=== PATIENT | male | born 1985 | race Two or more races ===

== ENCOUNTER 2023-07-21 16:49 | Emergency (ER) | payer SELFPAY ==
[2023-07-21 17:04] VITALS: BP 140/76; O2SAT 100
--- NOTE | 2023-07-21 17:11 | ED Physician Documentation ---
PD HPI WOUND RECHECK - Stated complaint Stated Complaint: L HAND LAC - Chief complaint Chief Complaint: Wound - Histroy obtained from History obtained from: Patient - Additional information Additional information: 37-year-old gentleman has had a longstanding lesion on the base of the right thumb. He thought it was a splinter initially and tried to take it out himself but really never got anything. Went to [facility] today where he had a biopsy done because the diagnosis was unclear and it wont stop bleeding. PD PAST MEDICAL HISTORY - Past Medical History Past Medical History: No Cardiovascular: None Respiratory: None Neuro: None Endocrine/Autoimmune: None GI: None : None HEENT: None Psych: None Musculoskeletal: None Derm: None - Past Surgical History Past Surgical History: No - Allergies Allergies/Adverse Reactions: Allergies Allergy/AdvReac Type Severity Reaction Status Date / Time No Known Drug Allergies Allergy Verified 07/21/23 16:54 - Social History Does the pt smoke?: No Smoking Status: Never smoker Does the pt drink ETOH?: No Does the pt have substance abuse?: No - POLST Patient has POLST: No PD ED PE NORMAL - Vitals Vital signs reviewed: Yes - General General: Alert and oriented X 3, No acute distress - Extremities Extremities: Other (On the left hand at the base of the first metacarpal on the radial side there is a bleeding pyogenic granuloma) Results - Vitals Vitals: Vital Signs - 24 hr 07/21/23 16:54 Temperature 36.5 C Heart Rate 80 Respiratory 16 Rate Blood Pressure 140/76 H O2 Saturation 100 Oxygen O2 Source Room air Procedures - General procedure General procedure: After verbal informed consent the left hand was prepped and draped and locally infiltrated with lidocaine with epinephrine. I made a dissecting incision down under the pyogenic granuloma and removed it in its entirety. Electrocautery was used at the base and was closed with a running 4-0 nylon suture. Departure - Departure Disposition: Home, Self Care Clinical Impression: Pyogenic granuloma of skin Condition: Good Record reviewed to determine appropriate education?: Yes Instructions: ED Granuloma Pyogenic Print Language: Malay Comments: I am sending the little piece for pathology. But it looks clinically like a pyogenic granuloma. I am hopeful that we removed it all today, return August 03 after 3 PM and we will go over results and remove your sutures. Until then, only light activity with the left hand so as not to tear your sutures. You can wash it with soap and water and keep a Band-Aid on it. Envo el pedacito para patologa. Carie clnicamente parece un granuloma pigeno. Tengo la lorri de que lo hayamos eliminado todo hoy, regrese el 11 de eliseo despus de las 3 p.m. y revisaremos los resultados y le quitaremos las suturas. Hasta entonces, realice nicamente kirstin ligera actividad con la mano izquierda para no romper las suturas. Puedes lavarlo con agua y jabn y dejarle kirstin curita. Forms: PCP List
[2023-07-21] MEDS: LIDOCAINE 1%-EPI 1:100000 20 ML MDV SUBQ STA (17:28)
== END 2023-07-21 17:40 | disposition home or self-care (01) ==
LOC: ED 16:49
DX: L98.0 Pyogenic granuloma (principal)
CPT/HCPCS: 10120; 99283

== ENCOUNTER 2023-08-04 15:49 | Emergency (ER) | payer SELFPAY ==
[2023-08-04 15:57] VITALS: O2SAT 99
--- NOTE | 2023-08-04 16:00 | ED Physician Documentation ---
<Abdi Baez M - Last Filed: 08/04/23 16:18> PD HPI SKIN - Stated complaint Stated Complaint: REMOVE STITCHES - Chief complaint Chief Complaint: Laceration - History obtained from History obtained from: Patient - Additional information Additional information: He had a mass on his left hand that I excised 2 weeks ago and sutured. Clinically consistent with pyogenic granuloma. He returns today for suture removal and discussion of pathology which was consistent with pyogenic granuloma. PD PAST MEDICAL HISTORY - Allergies Allergies/Adverse Reactions: Allergies Allergy/AdvReac Type Severity Reaction Status Date / Time No Known Drug Allergies Allergy Verified 08/04/23 16:05 PD ED PE NORMAL - Vitals Vital signs reviewed: Yes - General General: Alert and oriented X 3, No acute distress - Extremities Extremities: Other (Suture line on the proximal left thumb clean dry and intact without infection or evidence of recurrence of granuloma. Sutures removed during exam.) - Neuro Neuro: Alert and oriented X 3, Normal speech Departure - Departure Disposition: 01 Home, Self Care Clinical Impression: Pyogenic granuloma of skin, Visit for suture removal Condition: Stable Forms: PCP List Discharge Date/Time: 08/04/23 16:33 <Micheal Coronado - Last Filed: 08/04/23 20:39> PD PAST MEDICAL HISTORY - Past Medical History Past Medical History: No Cardiovascular: None Respiratory: None Neuro: None Endocrine/Autoimmune: None GI: None : None HEENT: None Psych: None Musculoskeletal: None Derm: None - Past Surgical History Past Surgical History: No - Social History Does the pt smoke?: No Smoking Status: Never smoker Does the pt drink ETOH?: No Does the pt have substance abuse?: No - POLST Patient has POLST: No Results - Vitals Vitals: Vital Signs - 24 hr 08/04/23 15:52 Temperature 36.8 C Heart Rate 88 Respiratory 16 Rate O2 Saturation 99 Oxygen O2 Source Room air
== END 2023-08-04 16:33 | disposition home or self-care (01) ==
LOC: ED 15:49
DX: Z48.02 Encounter for removal of sutures (principal); L98.0 Pyogenic granuloma
CPT/HCPCS: 99281; 99282